=== PATIENT | female | born 1925 | race Caucasian/White ===

== ENCOUNTER 2016-06-12 11:45 | Outpatient (CLI) | payer MEDICARE, BC | END 2016-06-12 23:59 | disposition home health service (06) | LOC: WOU 11:45 | PROVIDERS: ATTEND Surgery | DX: T81.4XXA Infection following a procedure, initial encounter (principal); T84.52XA Infection and inflammatory reaction due to internal left hip prosthesis, initial encounter; L02.416 Cutaneous abscess of left lower limb; Z87.891 Personal history of nicotine dependence; I10 Essential (primary) hypertension; I48.91 Unspecified atrial fibrillation; Z79.01 Long term (current) use of anticoagulants; I96 Gangrene, not elsewhere classified | CPT/HCPCS: 11043; A6402; A6407 ==